=== PATIENT | female | born 1960 | race Caucasian/White ===

== ENCOUNTER 2016-11-02 16:44 | Emergency (ER) | payer BC, OTHER ==
[2016-11-02 17:46] VITALS: TEMP 99; O2SAT 94
[2016-11-02] MEDS ORDERED: traMADol 37.5MG/APAP 325MG 1 EA TAB PO ONE (17:55)
--- NOTE | 2016-11-02 17:58 | ED.PDOC ---
History of Present Illness - General Chief Complaint: General Stated Complaint: FOOT PAIN Time Seen by Provider: 11/02/16 17:51 Source: patient Exam Limitations: no limitations - History of Present Illness Initial Comments: PT REPORTS INTERMITTENT EPISODES OF LEFT ANKLE/FOOT PAIN WITH NO RECOLLECTION OF TRAUMA. PT REPORTS PAIN USUALLY SUBSIDES WITH REST HOWEVER TODAY IT DID NOT. Timing/Duration: getting worse, other - SEVERAL WEEKS Severity: moderate Improving Factors: immobilization, rest Worsening Factors: movement Associated Symptoms: denies symptoms Allergies/Adverse Reactions: Allergies Sulfa Antibiotics Allergy (Verified 11/02/16 17:46) Home Medications: Ambulatory Orders Ipratropium/Albuterol [Duoneb] 3 ml INH Q6H PRN 10/13/15 Levothyroxine Sodium [Synthroid] 100 mcg PO ACBK 10/13/15 Tiotropium Lennox-Olodaterol [Stiolto Respimat 2.5-2.5 Mcg/Act] 2 puff INH DAILY 10/13/15 Valsartan 160 mg PO BEDTIME 10/13/15 Azithromycin [Zithromax] 500 mg PO QAM #4 tab 10/14/15 Bifidobacterium Infantis [Align] 4 mg PO BID #14 cap 10/14/15 Pantoprazole Sodium 40 mg PO BID #60 tab 10/14/15 Temazepam [Restoril] 30 mg PO BEDTIME PRN #30 cap 10/14/15 predniSONE [Prednisone] 20 mg PO QAM #20 tab 10/14/15 Ibuprofen 800 mg PO Q8HR PRN #30 tab 11/02/16 Tramadol-Acetaminophen [Ultracet] 1 - 2 tab PO Q6HR PRN #30 tab 11/02/16 Review of Systems - Review of Systems Constitutional: Denies: chills, fever Musculoskeletal: States: joint pain. Denies: back pain, joint swelling Skin: Denies: change in color, dryness Neurological: Denies: headache, paresthesia Past Medical History (General) - Patient Medical History Hx Seizures: No Hx Stroke: No Hx Asthma: No Hx of COPD: Yes Hx Cardiac Disorders: Yes Hx Congestive Heart Failure: No Hx Pacemaker: No Hx Hypertension: Yes Hx Diabetes: No Hx Gastroesophageal Reflux: Yes Hx MRSA: No - Vaccination History Hx Influenza Vaccination: Yes Hx Pneumococcal Vaccination: Yes - Social History Hx Tobacco Use: No Hx Alcohol Use: No Hx Substance Use: No Hx Physical Abuse: No Hx Emotional Abuse: No - Activities of Daily Living Hospice Agency (if applicable):: None - Female History Patient is a Female of Child Bearing Age (10 -59 yrs old): No Patient : No Family Medical History - Family History Mother Family History: Unknown Father Living Status: Cause of : Cancer Hx Family Cancer: Yes Physical Exam - Physical Exam General Appearance: Alert, Obvious distress, Obese Peripheral Pulses: dorsalis pedis,left: 2+, posterior tibialis,left: 2+ Extremity: no pedal edema, no calf tenderness, other - MINIMAL SWELLING AND POINT TENDERNESS AT THE BASE OF THE 5TH METATARSAL JUST BELOW THE MEDIAL MALLEOLOUS Neurologic: alert, normal mood/affect, oriented x 3 Skin Exam: normal color, warm/dry Progress - Progress Progress: 11/02/16 18:16 PT REPORTS SOME IMPROVEMENT IN PAIN AFTER ULTRACET X 2. XRAY FINDINGS DISCUSSED. - EKG/XRAY/CT XRAY: FOOT Xray Comments: OLD FX OF THE PROXMAL 5TH METATARSAL, CALCANEAL SPUR, NO ACUTE FINDINGS Departure - Departure Clinical Impression: Ankle arthritis Time of Disposition: 18:18 Disposition: Discharge to Home or Self Care Condition: Good Departure Forms: ED Discharge - Pt. Copy, Patient Portal Self Enrollment Instructions: DI for Ankle Pain Referrals: Maya Gonzalez NP [Primary Care Provider] - 1-2 Weeks Prescriptions: Tramadol-Acetaminophen [Ultracet] 1 - 2 tab PO Q6HR PRN #30 tab PRN Reason: Pain Ibuprofen 800 mg PO Q8HR PRN #30 tab PRN Reason: Pain Home Medications: Ambulatory Orders Ipratropium/Albuterol [Duoneb] 3 ml INH Q6H PRN 10/13/15 Levothyroxine Sodium [Synthroid] 100 mcg PO ACBK 10/13/15 Tiotropium Lennox-Olodaterol [Stiolto Respimat 2.5-2.5 Mcg/Act] 2 puff INH DAILY 10/13/15 Valsartan 160 mg PO BEDTIME 10/13/15 Azithromycin [Zithromax] 500 mg PO QAM #4 tab 10/14/15 Bifidobacterium Infantis [Align] 4 mg PO BID #14 cap 10/14/15 Pantoprazole Sodium 40 mg PO BID #60 tab 10/14/15 Temazepam [Restoril] 30 mg PO BEDTIME PRN #30 cap 10/14/15 predniSONE [Prednisone] 20 mg PO QAM #20 tab 10/14/15 Ibuprofen 800 mg PO Q8HR PRN #30 tab 11/02/16 Tramadol-Acetaminophen [Ultracet] 1 - 2 tab PO Q6HR PRN #30 tab 11/02/16
--- NOTE | 2016-11-02 18:09 | RAD ---
PROCEDURE: Foot,Left 3 Views CLINICAL HISTORY: LEFT FOOT PAIN OVER PROXIMAL 5TH METATARSAL INDICATION: Same as above COMPARISON: None . TECHNIQUE: 3.0 Views of the left foot were done. FINDINGS: There is no evidence of acute fractures or dislocation involving the bones of the left foot. There is a well corticated old nonunited fracture fragment at the base of the fifth metatarsal bone of the left foot. There is presence of a small plantar calcaneal spur The joint spaces are relatively well-maintained. There is no evidence of bony tarsal coalition. The soft tissues are radiographically unremarkable. There is no visualization of any radiopaque foreign bodies in the visualized soft tissues. IMPRESSION: There are no acute bony findings in the left foot. There is a well corticated old nonunited fracture fragment at the base of the fifth metatarsal bone of the left foot. There is presence of a small plantar calcaneal spur Place of interpretation: [id number]. Electronically signed by: Lavelle Julio MD 11/02/2016 6:08 PM CDT Workstation: [id number]
[2016-11-02 19:00] VITALS: BP 167/82
== END 2016-11-02 19:00 | disposition home or self-care (01) ==
LOC: ER 16:44
DX: M19.079 Primary osteoarthritis, unspecified ankle and foot (principal); M77.32 Calcaneal spur, left foot; J44.9 Chronic obstructive pulmonary disease, unspecified; I10 Essential (primary) hypertension; K21.9 Gastro-esophageal reflux disease without esophagitis; Z88.2 Allergy status to sulfonamides; Z79.899 Other long term (current) drug therapy

== ENCOUNTER → 2016-11-04 | Outpatient (CLI) | payer BC | END | disposition home or self-care (01) | LOC: YCFC.O 15:18 | PROVIDERS: ATTEND Nurse Practitioner Family | DX: E06.3 Autoimmune thyroiditis (principal); I10 Essential (primary) hypertension; J44.9 Chronic obstructive pulmonary disease, unspecified ==

== ENCOUNTER → 2017-12-14 | Outpatient (CLI) | payer BC | LOC: GMAJ 12:29 | PROVIDERS: ATTEND Family Medicine | DX: Z79.899 Other long term (current) drug therapy (principal) ==

== ENCOUNTER → 2018-01-04 | Outpatient (CLI) | payer BC ==
--- NOTE | 2018-01-05 16:35 | MAM ---
EXAM DESCRIPTION: 3D Screening BILATERAL : Digital Mammography. CLINICAL HISTORY: 57 years Female SCREENING . No complaints. No personal or family history of breast cancer. Childbirth. Postmenopausal 13 years ago. No HRT. Lifetime risk of developing breast cancer (Tyrer-Cuzick model)(%): 5.5. COMPARISON: 2-D digital screening bilateral mammography 03/31/2014.. No prior reports available. TECHNIQUE: Bilateral CC projection full-field images, digital 2-D mammographic technique. Bilateral digital 2-D full-field MLO images. CAD not utilized. Technically difficult study due to large size of the patient's breasts. Tiling technique was performed utilizing 2-D imaging. FINDINGS: The breast parenchymal density pattern is: Scattered areas of fibroglandular density. No skin thickening or nipple retraction. Bilateral solitary microcalcifications. Bilateral vascular calcifications. A tight group of microcalcifications is visualized medially and slightly inferior to the right nipple approximately 2 cm. Stable since the prior study. No new focal, stellate mass or density, focal asymmetry , and no suspicious microcalcifications bilaterally. Stable mammograms compared to prior study. Taking into account, differences in mammographic technique. IMPRESSION: Benign exam. BIRAD CATEGORY: 2 BENIGN FINDINGS. RECOMMENDATIONS: FOLLOW UP: Routine digital bilateral screening, one year interval from January 2018. Written communication explaining the IMPRESSION and follow-up, will be mailed to the patient and referring health care provider. According to the [employer], yearly mammograms are recommended starting at age 40 and continuing as long as a woman is in good health. Any breast change noted on a breast self-exam should be reported promptly to the patient's healthcare provider. Breast MRI is recommended for women with an approximately 20-25% or greater lifetime risk of breast cancer, including women with a strong family history of breast or ovarian cancer and women who have been treated for Hodgkin's disease. A negative mammographic report should not delay tissue diagnosis in patients with significant clinical history or physical findings. Extremely dense breast tissue limits the sensitivity of digital mammography. Electronically signed by: Bronson Giron MD 01/05/2018 4:34 PM CDT
== END ==
LOC: MAMMO 14:00
PROVIDERS: ATTEND Family Medicine
DX: Z12.31 Encounter for screening mammogram for malignant neoplasm of breast (principal)

== ENCOUNTER → 2018-01-17 | Outpatient (CLI) | payer BC ==
--- NOTE | 2018-01-18 12:48 | CT ---
Procedure: CT LUNG SCREENING Exam Date: 01/17/2018. Ordering Provider: WINNIE KENDRICK Clinical Indication: HX OF TOBACCO USE This patient meets eligibility criteria for low-dose CT lung cancer screening. Comparison: None. Technique: Using a multislice scanner, sequential helical axial imaging was obtained in the thorax, 2.5 mm thickness, 2.5 mm separation, from the level of the thoracic inlet through the lung bases without IV contrast. A low dose protocol was utilized: CTDI: 2.94 mGy. 120. kVp. 75 mA. 2D sagittal and coronal reconstructed images, 6.0 mm thickness, were obtained. This exam was performed according to our departmental dose optimization program which includes use of automated exposure control, adjustment of the mA and/or kV according to patient size and/or use of iterative reconstruction technique. Nodule measurements under 10 mm are given as mean value of 3 axes diameters. FINDINGS: Lungs and large airways: Groundglass nodule versus pleural thickening posterior right upper lobe measures 7 mm on axial image 30. Solid nodule 5 mm diameter lateral right middle lobe, circumscribed borders on axial image 59. No large abnormal nodules. No masses. No infiltrates. Small peripheral densities bilaterally. Pleura: Bilateral scattered focal pleural thickening with no bilateral effusion or pneumothorax. Mediastinum and kimmy: evaluation limited by low dose technique and lack of IV contrast. Also limitations by patient body habitus. No large lymph nodes or soft tissue masses. Heart and great vessels: Coronary artery calcifications. Atherosclerotic calcifications of the brachiocephalic vessels aortic arch and descending thoracic aorta. Chest wall, lower neck, axillae: Evaluation also limited by same factors as described above. Also limited by patient body habitus. No large soft tissue mass. Upper abdomen: Not well seen. Osseous structures: Evaluation limited by low dose MIP technique. Also limited by patient body habitus. Thoracic spondylosis no blastic or lytic lesions. IMPRESSION: Limitations to the study due to patient large body habitus. Scanning parameters still meet low-dose criteria. 5 mm solid nodule lateral right middle lobe. 7 mm groundglass nodule versus focal pleural thickening posterior right apex. Cannot evaluate fine detail of the lung parenchyma.. [facility] Best Practice recommendations to follow utilizing lung RADS system. Please see below for Lung RADS category and FOLLOW-UP.* *Lung RADS category CATEGORY 2- Nodules with a very low likelihood (less than 1%) of becoming a clinically active cancer due to size or lack of growth. Nodules: Solid or part solid nodule(s) less than 6mm, new solid nodule less than 4mm. Ground glass nodule(s) less than 20mm or unchanged or slow growing ground glass nodule 20mm or greater. Cat 3 or 4 nodule unchanged for 3 or more months. FOLLOW-UP: Continue annual screening with a Low Dose Chest CT in 12 months for re-evaluation. Electronically signed by: Bronson Giron MD 01/18/2018 12:47 PM [facility]
== END ==
LOC: CT 13:30
PROVIDERS: ATTEND Family Medicine
DX: Z87.891 Personal history of nicotine dependence (principal)

== ENCOUNTER → 2018-12-25 | Outpatient (CLI) | payer BC | LOC: GMAJ 10:39 | PROVIDERS: ATTEND Family Medicine | DX: E03.9 Hypothyroidism, unspecified (principal); I10 Essential (primary) hypertension ==

== ENCOUNTER → 2019-01-29 | Outpatient (CLI) | payer BC, OTHER ==
--- NOTE | 2019-01-30 13:50 | CT ---
Procedure: CT LUNG SCREENING Exam Date: 01/29/2019 Ordering Provider: Armani Abreu Clinical Indication: PERSONAL HISTORY OF TOBACCO USE smoking cessation 12.5 years. 66 pack years. This patient meets eligibility criteria for low-dose CT lung cancer screening. Comparison: Low-dose CT lung cancer screening examination 17 January 2018. Technique: Using a multislice scanner, sequential helical axial imaging was obtained in the thorax, 2.5 mm thickness, 2.5 mm separation, from the level of the thoracic inlet through the lung bases without IV contrast. A low dose protocol was utilized for BMI greater than 30: BMI: Not recorded. CTDI: 2.94 mGy. 120. kVp. 75 mA. DLP 106.51 mGy-cm. 2D sagittal and coronal reconstructed images, 6.0 mm thickness, were obtained. This exam was performed according to our departmental dose optimization program which includes use of automated exposure control, adjustment of the mA and/or kV according to patient size and/or use of iterative reconstruction technique. Nodule measurements under 10 mm are given as mean value of 3 axes diameters. Technically difficult study due to patient body habitus: Body contacting the sides of the CT gantry.. FINDINGS: Lungs and large airways: Nodule versus pleural thickening seen previously posterior right upper lobe more consistent with pleural thickening on this study on axial image /. Solid nodule lateral right middle lobe subpleural location, now measures 4.4 mm, on axial image 2/69. Focal pleural thickening has slightly more inferior level laterally possibly enlarged since the prior study measuring 3.3 mm, on axial image 2/73. Stable pleural parenchymal scarring in the right middle lobe and right lower lobe. Minimal bibasilar posterior dependent atelectasis in the lower lobes. Stable pleural parenchymal scarring in the inferior lingula including nodular-type densities stable. Pleura and space: Bilateral sporadic focal pleural thickening more in the upper lung hoffman. Stable. Mediastinum and kimmy: evaluation limited by low dose technique and lack of IV contrast. Negative. Heart and great vessels: Coronary artery calcifications and moderate amount of atherosclerotic calcifications in the included brachiocephalic vessels aortic arch and descending thoracic aorta. Chest wall, lower neck, axillae: Evaluation also limited by same factors as described above. Large patient body habitus with artifact. Otherwise Unremarkable. Upper abdomen: Evaluation limited by low-dose technique. Evaluation limited by patient body habitus. Included organs with no unusual calcifications. Surgical clips in the gallbladder fossa. No large pockets of pneumoperitoneum. Osseous structures: Evaluation limited by low dose MIP technique. Minimal spondylosis in the thoracic spine. IMPRESSION: 1. Technically difficult study due to patient large body habitus combined with low dose technique. Solid subpleural nodule lateral right middle lobe decreased in size since the prior study. Region of focal pleural thickening appearing more nodular and measuring 3.3 mm on this examination. [facility] Best Practice Recommendations: please see below for Lung RADS category and FOLLOW-UP.* *Lung RADS category CATEGORY 2- Nodules with a very low likelihood (less than 1%) of becoming a clinically active cancer due to size or lack of growth. Nodules: Perifissural nodule(s) < 10 mm. (526mm3). Solid or part solid nodule(s) less than 6mm (113.1 mm3), new solid nodule less than 4mm (33.5 mm3). Ground glass nodule(s) less than 30mm (54312.2 mm3) or unchanged or slow growing ground glass nodule 30mm or greater. Cat 3 or 4 nodule unchanged for 3 or more months. FOLLOW-UP: Continue annual screening with a Low Dose Chest CT in 12 months for re-evaluation. Electronically signed by: Bronson Giron MD 01/30/2019 1:48 PM [employer]
== END ==
LOC: CT 14:00
PROVIDERS: ATTEND Family Medicine
DX: Z87.891 Personal history of nicotine dependence (principal); R91.1 Solitary pulmonary nodule; R91.8 Other nonspecific abnormal finding of lung field

== ENCOUNTER → 2019-11-21 | Outpatient (CLI) | payer BC | LOC: GMAJ 16:57 | PROVIDERS: ATTEND Family Medicine | DX: E03.9 Hypothyroidism, unspecified (principal) ==